=== PATIENT | male | born 1950 | race Hispanic/Latino ===

== ENCOUNTER 2017-03-06 11:06 | Observation (INO) | payer MEDICARE, MEDICAID ==
[2017-03-06] MEDS ORDERED: methylPREDNISolone Sod Succ/PF 125 MG/2 ML VIAL ONE (11:35)
[2017-03-06 11:36] LABS: #Eosinphils 0.1 thou/uL (0.0-0.7); #Monocytes 0.8 thou/uL (0.11-0.59); #Neutrophils 7.3 thou/uL (1.40-6.50); %Basophils 0.3 % (0.0-1.0); %Eosinophils 0.6 % (0.0-10.0); %Lymphocytes 10.4 % (21.0-51.0); %Monocytes 8.9 % (0.0-10.0); Hematocrit 50.6 % (42.0-52.0); White Blood Cell (WBC) Count 9.2 thou/uL (4.8-10.8)
[2017-03-06 11:54] LABS: Lactic Acid - Sepsis 2.4 mmol/L (0.5-2.2)
[2017-03-06 11:58] LABS: ALT (SGPT) 30 U/L (8-55); AST (SGOT) 22 U/L (5-34); Alkaline Phosphatase 110 U/L (40-150); Anion Gap 13 mmol/L (10-20); BUN (Urea Nitrogen) 15 mg/dL (8.4-25.7); Bilirubin, Total 0.3 mg/dL (0.2-1.2); CK (CPK) 215 U/L (30-200); Calc. Creatinine Clearance 0 mL/min (70-130); Calcium 8.4 mg/dL (7.8-10.44); Carbon Dioxide 24 mmol/L (23-31); Chloride 102 mmol/L (98-107); Estimated GFR-MDRD 77; Globulin 3.4 g/dL (2.4-3.5); Protein, Total 7.1 g/dL (5.8-8.1)
--- NOTE | 2017-03-06 12:02 | RAD ---
SINGLE VIEW CHEST: HISTORY: Shortness of breath. COMPARISON: 11/16/2016 FINDINGS: Single view of the chest show normal sized cardiomediastinal silhouette. There is no evidence of cons olidation, mass, or pleural effusion. The bones are unremarkable. IMPRESSION: No evidence of acute cardiopulmonary disease. POS: [facility]
[2017-03-06 12:03] LABS: Troponin I Less than 0.010 ng/mL (< 0.028)
[2017-03-06] MEDS ORDERED: Azithromycin 500 MG in Sodium Chloride 0.9% 250 ML 250 ML IVPB SCH (12:15)
[2017-03-06] MEDS ORDERED: Acetaminophen 500 MG TAB ONE (12:22)
[2017-03-06] MEDS ORDERED: Oseltamivir 75 MG CAP PO SCH (13:15)
[2017-03-06 15:48] LABS: Troponin I 0.013 ng/mL (< 0.028)
[2017-03-06] MEDS ORDERED: Diabetic Tussin 200 MG/10 ML UDCUP PO PRN (17:53)
[2017-03-06] MEDS ORDERED: Lorazepam 1 MG TAB PO PRN (17:53)
[2017-03-06] MEDS ORDERED: hydrALAZINE 20 MG/ML VIAL SLOW IVP PRN (17:53)
[2017-03-06] MEDS ORDERED: Nitroglycerin 0.4 MG TAB (25 Tab Bottle) SL PRN (17:53)
[2017-03-06] MEDS ORDERED: Mag-Al 1200 mg/1200 mg/30 ML UDCUP PO PRN (17:53)
[2017-03-06] MEDS ORDERED: Senokot 8.6 MG TAB PO PRN (17:53)
[2017-03-06] MEDS ORDERED: traMADol HCl 50 MG TAB PO PRN (17:53)
[2017-03-06] MEDS ORDERED: Ondansetron HCl/PF 4 MG/2 ML Vial IVP PRN (17:53)
[2017-03-06] MEDS ORDERED: Calcium Carbonate 500 MG ChewTAB PO PRN (17:53)
[2017-03-06] MEDS ORDERED: Loratadine 10 MG TAB PO PRN (17:53)
[2017-03-06] MEDS ORDERED: Bisacodyl 5 MG TAB PO PRN (17:53)
[2017-03-06] MEDS ORDERED: Benzonatate 100 MG CAP PO PRN (17:53)
[2017-03-06] MEDS ORDERED: cloNIDine 0.1 MG TAB PO PRN (17:53)
[2017-03-06] MEDS ORDERED: HYDROcodone/Acetaminophen 5/325 mg Tablet PO PRN (17:53)
[2017-03-06] MEDS ORDERED: Acetaminophen 325 MG TAB PO PRN (17:53)
[2017-03-06 18:18] VITALS: BMI 39.6
[2017-03-06 19:40] LABS: Troponin I Less than 0.010 ng/mL (< 0.028)
[2017-03-06] MEDS ORDERED: Nicotine 21 MG PATCH TOP SCH (20:00)
[2017-03-06] MEDS: Sodium Chloride 0.9% 1,000 ML IV SCH (20:19)
[2017-03-06] MEDS: guaiFENesin ER 600 MG TAB PO SCH (20:23)
[2017-03-06] MEDS: Aspirin 81 mg Enteric Coated Tablet PO SCH (20:41)
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
[2017-03-06 22:59] LABS: LegU Control Bar Appear? YES (CONTROL BAR); LegionellaU Control Bkground? CLEAR/WHITE (CLR/WHITE); Strp pneuU Control Background? CLEAR/WHITE (CLR/WHITE); Strp pneumo Control Bar Appear YES (CONTROL BAR)
[2017-03-07 04:58] LABS: #Basophils 0.1 thou/uL (0.0-0.2); #Lymphocytes 1.2 thou/uL (1.20-3.40); #Monocytes 0.8 thou/uL (0.11-0.59); #Neutrophils 6.8 thou/uL (1.40-6.50); %Basophils 1.2 % (0.0-1.0); %Eosinophils 0.1 % (0.0-10.0); %Monocytes 8.9 % (0.0-10.0); Hematocrit 50.4 % (42.0-52.0); Mean Platelet Volume 6.8 fL (7.4-10.4); Red Blood Cell (RBC) Count 5.02 mill/uL (4.70-6.10); White Blood Cell (WBC) Count 8.8 thou/uL (4.8-10.8)
[2017-03-07 05:13] LABS: Anion Gap 11 mmol/L (10-20); BUN (Urea Nitrogen) 14 mg/dL (8.4-25.7); Calc. Creatinine Clearance 134 mL/min (70-130); Calcium 8.9 mg/dL (7.8-10.44); Carbon Dioxide 26 mmol/L (23-31); Chloride 106 mmol/L (98-107); Estimated GFR-MDRD 87
[2017-03-07] MEDS: Sodium Chloride 0.9% 1,000 ML IV SCH (05:59)
[2017-03-07] MEDS: Oseltamivir 75 MG CAP PO SCH ×2 (06:00→10:08)
[2017-03-07 08:12] VITALS: BP 177/84; TEMP 98.1
[2017-03-07] MEDS ORDERED: Lisinopril 5 MG TAB PO SCH ×2 (09:00)
[2017-03-07] MEDS ORDERED: Enoxaparin Sodium 40 MG/0.4 ML SYRINGE SC SCH (09:00)
[2017-03-07] MEDS: guaiFENesin ER 600 MG TAB PO SCH (10:07)
[2017-03-07] MEDS: Aspirin 81 mg Enteric Coated Tablet PO SCH (10:07)
[2017-03-07] MEDS ORDERED: cefTRIAXone\\ROCEPHIN 1 GM in Syringe 10 ML SLOW IVP SCH (12:00)
[2017-03-07] MEDS ORDERED: Azithromycin 500 MG in Sodium Chloride 0.9% 250 ML 250 ML IVPB SCH (13:00)
--- NOTE | 2017-03-07 15:12 | PDOC.EVN ---
Event Note - Event Note Event Note: Pt seen and examined .doing much better.Ok to DC.See DC summary for details will need to continue inhaler,nebulizer till back to baseline. still with wheezes with known history of COPD.Came with Acute copd exacerbation.Scripts given. Duonebs [id number] prn wheezing/sob, as patient was requiring /using in hospital.
--- NOTE | 2017-03-07 17:28 | DIS ---
DATE OF ADMISSION: 03/06/2017 DATE OF DISCHARGE: 03/07/2017 PRIMARY CARE PHYSICIAN: The patient will establish care with [facility]. DISCHARGE DISPOSITION: Home. DISCHARGE DIAGNOSES: 1. Acute chronic obstructive pulmonary disease exacerbation with bronchitis. 2. Influenza type A. 3. Acute respiratory distress secondary to influenza. 4. Morbid obesity. 5. Hypertension. 6. Tobacco abuse. 7. History of nephrolithiasis. DISCHARGE MEDICATIONS: As follow: 1. Medrol Dosepak. 2. Mucinex 1200 mg p.o. q.12 hours for 3 more days. 3. Ventolin inhaler as needed. 4. Tamiflu 75 mg p.o. daily to finish a course of 5 days. 5. Nicotine patch 21 mg transdermal daily. 6. Lisinopril 5 mg p.o. b.i.d. 7. DuoNebs every 4 hours as needed. 8. Tessalon Perles 100 mg every 4 hours as needed. 9. Aspirin 81 mg p.o. daily. HISTORY OF PRESENTING ILLNESS: Mr. Sampson is a pleasant 66-year-old male with past medical history of chronic obstructive pulmonary disease without any recent medical care, who presented to the emerge ncy room with complaints of worsening shortness of breath for one week duration along with some weakn ess, fever, chills, and cough. He was found to have influenza A. His chest x-ray did not suggest an y pneumonia. He was found to have some wheezing and was given IV steroids, and empiric antibiotics f or possible COPD exacerbation as well. He was admitted for overnight observation. Please see admiss ion history and physical for further details. HOSPITAL COURSE: The patient was continued on IV antibiotics, IV steroids, nebulizers and symptomati c and supportive care along with Tamiflu. Overnight, he was monitored and he remained hemodynamicall y stable. There were some concerns of some T-wave flattening in his initial EKG, but his serial card iac enzymes were done and were unremarkable. A transthoracic echocardiogram has been done, but the r esults are pending at this time. On the day of discharge, the patient is back to him his usual self with much improvement in his sympt oms. He is eager to go home and will be discharged under the care of his daughter. Droplet precauti ons have been instituted and advised. He has been started on new antihypertensive medication as well as a small dose baby aspirin for now. Tobacco abuse counseling has been provided and he started on nicotine patch. He was seen and examined prior to discharge. PHYSICAL EXAMINATION: Include: VITAL SIGNS: Temperature 98.1, pulse of 76, respirations 22, saturating 97% on room air, blood press ure 177/84. GENERAL: No acute distress, awake, alert, oriented x3. CHEST: Clear to auscultation without any wheezing, rales or rhonchi. Rate and rhythm is regular wit hout any murmur, rubs or gallops. ABDOMEN: Obese LABORATORY DATA: CBC is unremarkable. Serum chemistry unremarkable. Lactic acid was 2.4 and then 2 .5. His cardiac enzymes trended and negative x3. Urinary legionella and pneumococcal antigens are n egative. Chest x-ray is negative for pneumonia. He will follow up and establish care with [facility] where his daughter seeks medical care. Importance of medication compliance was conveyed and the patient and daughter verbalized understand ing.
--- NOTE | 2017-03-16 14:33 | EKG ---
Test Reason : SOB Blood Pressure : / mmHG Vent. Rate : 091 BPM Atrial Rate : 091 BPM P-R Int : 134 ms QRS Dur : 080 ms QT Int : 316 ms P-R-T Axes : 050 046 146 degrees QTc Int : 388 ms Normal sinus rhythm T wave abnormality, consider lateral ischemia Abnormal ECG Confirmed by AUDREY LOPEZ DO ([id number]), graphics editor MATTIE GARDUNO ([id number] on 03/16/2017 2:33:11 PM Referred By: JOHN Confirmed By:AUDREY LOPEZ DO
== END 2017-03-07 11:51 | disposition home or self-care (01) ==
LOC: ERS 11:06 → 2SW 16:25
PROVIDERS: ADMIT Internal Medicine; ATTEND Internal Medicine
DX: J44.1 Chronic obstructive pulmonary disease with (acute) exacerbation (principal); J20.9 Acute bronchitis, unspecified; J44.0 Chronic obstructive pulmonary disease with (acute) lower respiratory infection; J10.1 Influenza due to other identified influenza virus with other respiratory manifestations; R06.03 Acute respiratory distress; E66.01 Morbid (severe) obesity due to excess calories; I10 Essential (primary) hypertension; F17.210 Nicotine dependence, cigarettes, uncomplicated; R74.0 Nonspecific elevation of levels of transaminase and lactic acid dehydrogenase [LDH]; Z68.38 Body mass index [BMI] 38.0-38.9, adult; Z79.82 Long term (current) use of aspirin; Z79.52 Long term (current) use of systemic steroids; Z79.899 Other long term (current) drug therapy; Z90.49 Acquired absence of other specified parts of digestive tract; Z98.890 Other specified postprocedural states; Z87.442 Personal history of urinary calculi
CPT/HCPCS: 71010; 80048; 80053; 82550; 82553 ×2; 83605; 84484 ×2; 85025 ×2; 87040; 87804 ×2; 87899 ×2; 93005; 94640 ×2; 94760; 96361 ×2; 96365; 96372; 96375; 96376 ×2; 99285; G0378; 36415; A4216; J0456; J0696; J1650; J2920; J2930; J7050; J7620

== ENCOUNTER 2018-12-18 17:09 | Emergency (ER) | payer MEDICARE, MEDICAID ==
--- NOTE | 2018-12-18 17:56 | RAD ---
Exam:4 views right knee HISTORY: Pain. Slip and fall COMPARISON: None FINDINGS: Small suprapatellar effusion. Mild to moderate loss of patellar joint space height. Mild loss of the lateral and medial joint space height with osteophyte formation. No malalignment. No fracture. There is prepatellar soft tissue swelling. IMPRESSION: 1. Prevertebral soft tissue swelling. Suprapatellar effusion. 2. No radiographic evidence of fracture. If there is concern for internal derangement, consider MRI. 2. Tricompartmental change.
== END 2018-12-18 19:30 | disposition home or self-care (01) ==
LOC: ERS 17:09
DX: S80.01XA Contusion of right knee, initial encounter (principal); I10 Essential (primary) hypertension; J44.9 Chronic obstructive pulmonary disease, unspecified; F17.210 Nicotine dependence, cigarettes, uncomplicated; W01.198A Fall on same level from slipping, tripping and stumbling with subsequent striking against other object, initial encounter

== ENCOUNTER 2019-08-20 18:18 | Emergency (ER) | payer MEDICARE, MEDICAID ==
[2019-08-20] MEDS ORDERED: Cyclobenzaprine 10 MG TAB ONE (19:53)
[2019-08-20] MEDS ORDERED: Lidocaine 5% Patch TD SCH (20:00)
[2019-08-20] MEDS ORDERED: Cyclobenzaprine 10 MG TAB PO SCH (20:00)
--- NOTE | 2019-08-20 20:33 | RAD ---
PA AND LATERAL CHEST: 08/20/19 HISTORY: Right sided chest pain since a fall two days ago. Heart size and mediastinum are within normal limits. Lungs show some chronic appearing change without focal infiltrative process. No pneumothorax or pleural effusions. No definite rib fractures. IMPRESSION: No acute changes. POS: [id number]
== END 2019-08-20 20:16 | disposition home or self-care (01) ==
LOC: ERS 18:18
DX: S20.211A Contusion of right front wall of thorax, initial encounter (principal); I10 Essential (primary) hypertension; J44.9 Chronic obstructive pulmonary disease, unspecified; F17.210 Nicotine dependence, cigarettes, uncomplicated; W22.8XXA Striking against or struck by other objects, initial encounter
CPT/HCPCS: 71046

== ENCOUNTER 2020-08-27 22:14 | Emergency (ER) | payer MEDICARE, MEDICAID ==
[2020-08-27] MEDS ORDERED: Lidocaine Viscous Sol 2% 15 ml UD Cup ONE (23:54)
== END 2020-08-28 00:16 | disposition home or self-care (01) ==
LOC: ERS 22:14
DX: T25.132A Burn of first degree of left toe(s) (nail), initial encounter (principal); T25.131A Burn of first degree of right toe(s) (nail), initial encounter; I10 Essential (primary) hypertension; J44.9 Chronic obstructive pulmonary disease, unspecified; F17.210 Nicotine dependence, cigarettes, uncomplicated; X11.8XXA Contact with other hot tap-water, initial encounter
CPT/HCPCS: 99283

== ENCOUNTER 2022-04-30 16:12 | Emergency (ER) | payer MEDICARE, MEDICAID ==
[2022-04-30 16:50] LABS: #Basophils 0.1 thou/uL (0.0-0.2); #Eosinphils 0.1 thou/uL (0.0-0.7); %Basophils 0.4 % (0.0-1.0); %Eosinophils 1.2 % (0.0-10.0); %Lymphocytes 24.5 % (21.0-51.0); %Monocytes 8.3 % (0.0-10.0); %Neutrophils 65.6 % (42.0-75.0); Hemoglobin 15.7 g/dL (14.0-18.0); Mean Corpuscular HGB CONC 32.9 g/dL (32.0-36.0); Mean Corpuscular Hemoglobin 32.7 pg (27.0-31.0); Mean Corpuscular Volume 99.5 fl (78.0-98.0); Mean Platelet Volume 7.6 fL (7.4-10.4); Platelet Count 277 10x3/uL (130-400); RBC Distribution Width 12.4 % (11.5-14.5); Red Blood Cell (RBC) Count 4.79 mill/uL (4.70-6.10); White Blood Cell (WBC) Count 12.2 10x3/uL (4.8-10.8)
[2022-04-30 17:13] LABS: ALT (SGPT) 16 U/L (8-55); AST (SGOT) 13 U/L (5-34); Albumin 3.9 g/dL (3.4-4.8); Alkaline Phosphatase 94 U/L (40-110); Anion Gap 10 mmol/L (10-20); BUN (Urea Nitrogen) 23 mg/dL (8.4-25.7); Bilirubin, Total 0.4 mg/dL (0.2-1.2); Calc. Creatinine Clearance 0 mL/min (70-130); Calcium 8.9 mg/dL (7.8-10.44); Carbon Dioxide 28 mmol/L (23-31); Chloride 106 mmol/L (98-107); Estimated GFR 89; Glucose 106 mg/dL (83-110); Protein, Total 6.9 g/dL (5.8-8.1); Sodium 140 mmol/L (136-145)
[2022-04-30 18:15] LABS: Bilirubin Negative (Negative); Blood, Urine Negative (Negative); Clarity Clear (Clear); Glucose, Urine (Dipstick) Normal (Negative); Ketone, Urine Negative (Negative); Leukocyte Negative Leu/uL (Negative); Nitrite Negative (Negative); Protein, Urine (Dipstick) 10 mg/dL (Neg-Trace); Specific Gravity, Urine 1.032 (1.002-1.036); pH, Urine 5.5 (5.0-9.0)
== END 2022-04-30 18:05 | disposition home or self-care (01) ==
LOC: ERS 16:12
DX: R07.89 Other chest pain (principal); I10 Essential (primary) hypertension; J44.9 Chronic obstructive pulmonary disease, unspecified; D72.829 Elevated white blood cell count, unspecified; F17.210 Nicotine dependence, cigarettes, uncomplicated
CPT/HCPCS: 36415; 71045; 80053; 81003; 84484; 85025; 93005

== ENCOUNTER 2022-12-30 12:23 | Emergency (ER) | payer MEDICARE, MEDICAID | END 2022-12-30 15:20 | disposition home or self-care (01) | LOC: ERS 12:23 | DX: S00.01XA Abrasion of scalp, initial encounter (principal); K21.9 Gastro-esophageal reflux disease without esophagitis; F17.210 Nicotine dependence, cigarettes, uncomplicated; Z79.899 Other long term (current) drug therapy; Z79.82 Long term (current) use of aspirin; W18.30XA Fall on same level, unspecified, initial encounter | CPT/HCPCS: 70450 ==